=== PATIENT | female | born 1945 | race Caucasian/White ===

== ENCOUNTER → 2017-06-04 | Outpatient (CLI) | payer MEDICARE, BC ==
[2014-06-06 09:42] VITALS: BP 127/59
[~2017-06-04] MED LIST: PRILOSEC 20MG20 MG PO
== END ==
LOC: RAD 17:39
DX: M79.642 Pain in left hand (principal); Z91.81 History of falling; Z88.2 Allergy status to sulfonamides

== ENCOUNTER 2020-06-23 11:30 | Outpatient (RCR) | payer MEDICARE, BC ==
[2014-06-06 09:42] VITALS: BP 127/59
== END 2020-09-14 ==
LOC: PT
DX: M79.604 Pain in right leg (principal); M25.512 Pain in left shoulder; G89.29 Other chronic pain

== ENCOUNTER → 2020-10-08 | Outpatient (CLI) | payer MEDICARE, BC | LOC: MAMMO 08:19 | DX: Z12.31 Encounter for screening mammogram for malignant neoplasm of breast (principal) ==

== ENCOUNTER 2021-06-06 21:11 | Emergency (ER) | payer MEDICARE, BC ==
[~2021-06-06] VITALS: Ht 162.6 cm; Wt 79.0 kg
[2021-06-06] MEDS ORDERED: ESCITALOPRAM10 MG PO (21:44)
[2021-06-06 23:14] VITALS: BP 112/68
== END 2021-06-06 23:14 | disposition home or self-care (01) ==
LOC: ED 21:11
DX: S80.01XA Contusion of right knee, initial encounter (principal); Z87.891 Personal history of nicotine dependence; W01.0XXA Fall on same level from slipping, tripping and stumbling without subsequent striking against object, initial encounter; Y93.01 Activity, walking, marching and hiking; Y92.830 Public park as the place of occurrence of the external cause
CPT/HCPCS: 15977; L1830

== ENCOUNTER → 2023-12-12 | Outpatient (CLI) | payer MEDICARE, BC ==
[~2023-12-12] MED LIST changes: +ESCITALOPRAM10 MG PO
== END ==
LOC: MAMMO 14:28
DX: Z12.31 Encounter for screening mammogram for malignant neoplasm of breast (principal)